=== PATIENT | female | born 1940 | race Caucasian/White ===

== ENCOUNTER → 2016-06-27 | Outpatient (CLI) | payer MEDICARE, OTHER ==
[~2016-06-27] MED LIST: ADV25050 INH; LANS30CA PO; MONT10TA21 PO; NASO17 NASAL; TRAM50TA2 PO
--- NOTE | 2016-06-27 16:45 | RADRPT ---
PROCEDURE: Right knee radiographs. CLINICAL INDICATION: Right knee pain. Postop. TECHNIQUE: Three views. Weight bearing. Frontal, lateral, and patellar view. COMPARISON: 07/01/2015. FINDINGS: There is no fracture or dislocation. The soft tissues are normal. 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 There is no lytic or blastic lesion. There is no joint effusion. IMPRESSION: 1. Satisfactory postoperative appearance of the right knee. RPTAT: QQ .Yahir Tucker MD, Date Time Electronically viewed and signed by .Yahir Tucker MD, on 06/27/2016 16:45 .R/
== END | disposition home or self-care (01) ==
LOC: HKI 14:29
PROVIDERS: ATTEND Orthopaedic Surgery
DX: M25.561 Pain in right knee (principal); Z96.653 Presence of artificial knee joint, bilateral
CPT/HCPCS: 73562; G0463